=== PATIENT | female | born 1990 | race Caucasian/White ===

== ENCOUNTER 2023-10-05 09:10 | Emergency (ER) | payer OTHER, SELFPAY ==
[2023-10-05 09:33] VITALS: BP 157/98; PULSE 98; RESP 16; TEMP 36.7; O2SAT 100
--- NOTE | 2023-10-05 09:37 | ED.SKABFB ---
HPI - Skin/Abscess/Foreign Bdy General Chief complaint: Skin/Abscess/Foreign Body Stated complaint: leg abscess Time Seen by Provider: 10/05/23 09:37 Source: patient Mode of arrival: ambulatory Limitations: no limitations History of Present Illness HPI narrative: Janae is a 32-year-old female patient presenting to the clinic today with complaints of a possible abscess to the left inner thigh near her groin. She reports that she 1st noticed this on night when it became red swollen and tender. States that has been draining some green discharge. No drainage today. Area is head still operator and red. She denies any fever, chills, or body aches. Related Data Allergies Allergy/AdvReac Type Severity Reaction Status Date / Time bactrim Allergy unknown Uncoded 10/05/23 11:11 Review of Systems Review of Systems: Pertinent positives per HPI. Patient denies any fever, chills, rash, headache, visual changes, dizziness, cough, runny nose, sore throat, shortness of breath, chest pain, palpitations, nausea, vomiting, diarrhea, constipation, abdominal pain, or any urinary issues. PMFSH Comments At the time of my signature, I reviewed and agree with the nursing past medical, surgical, social, and family history. There is no relevant family history pertinent to the patient complaint. Exam Narrative: General: Well-developed, well nourished, in no apparent distress Head: Normocephalic, atraumatic. Cardio: Regular rate and rhythm, s1 and s2 normal, no murmur appreciated. Resp: Clear to auscultation bilaterally, no rhonchi, rales, wheezing or rubs. Integumentary: [place], warm, and dry, indurated, red, with mild erythema noted to the left inner thigh near her groin, area does not have very much fluctuance upon exam however is tender to palpation. Redness measures 4 cm by 5 cm Course Course Emergency Course: Portions of this record may have been created with voice recognition software. Vital Signs Vital signs: Vital Signs Temperature 36.7 C 10/05/23 09:33 Pulse Rate 98 10/05/23 09:33 Respiratory Rate 16 10/05/23 09:33 Blood Pressure 157/98 H 10/05/23 09:33 Pulse Oximetry 100 10/05/23 09:33 Oxygen Delivery Room Air 10/05/23 09:33 Temperature 36.7 C 10/05/23 09:33 Pulse Rate 76 10/05/23 11:17 Respiratory Rate 16 10/05/23 11:17 Blood Pressure 122/85 10/05/23 11:17 Pulse Oximetry 98 10/05/23 11:17 Oxygen Delivery Room Air 10/05/23 09:33 Vital signs reviewed MDM - Skin/Abscess/Foreign Bdy MDM Narrative Medical decision making narrative: At the time of visit patient is resting comfortably on the exam table. Patient appears to be nontoxic. Labs: CBC shows white blood cell count of 8.3, H and H of 13.7 and 40.6, platelet counts 337, chemistry level shows 137 sodium, potassium of 4.2, chloride 105, BUN of 10, creatinine 0.7, GFR greater than 60, liver function test within normal limits Plan: I suspect patient has an abscess to the left inner groin. Abscess is already draining. Will place patient on clindamycin. Supportive measures were discussed with the patient and they voiced understanding discharge instructions and agrees to treatment plan. Return precautions reviewed Differential Diagnosis Differential diagnosis: Likely abscess of skin or subcutaneous tissue, cellulitis, insect bites and other (Hidradenitis suppurative) Lab Data 10/05/23 09:43 10/05/23 09:43 Labs: Lab Results 10/05/23 Range/Units 09:43 WBC 8.3 (4.5-10.0) K/mm3 RBC 4.56 (4.2-5.4) M/mm3 Hgb 13.7 (12.0-15.0) g/dL Hct 40.6 (37.0-47.0) % MCV 89.0 (80-100) fl MCH 30.0 (26-34) pg MCHC 33.7 (32-36) g/dl RDW 12.8 (11.5-14.5) % Plt Count 337 (150-375) k/mm3 MPV 9.9 (7.4-10.4) fl Immature Gran % (Auto) 0.5 (0-0.5) % Neut % (Auto) 80.6 H (45.5-73.1) % Lymph % (Auto) 10.9 L (18.3-44.2) % [place] % (Auto) 6.1 (2.6-8.5) % Eos % (Auto)
[2023-10-05 10:17] LABS: Basophils Percent Auto 0.4 % (0.2-1.2); Eosinophils Absolute Auto 0.1 K/mm3 (0-0.3); Eosinophils Percent Auto 1.5 % (0-4.4); Hematocrit 40.6 % (37.0-47.0); Hemoglobin 13.7 g/dL (12.0-15.0); Immature Granulocyte Absolute 0.04 K/mm3 (0.00-0.031); Immature Granulocyte Percent A 0.5 % (0-0.5); Lymphocytes Percent Auto 10.9 % (18.3-44.2); Mean Corpuscular HGB Conc 33.7 g/dl (32-36); Mean Platelet Volume 9.9 fl (7.4-10.4); Monocytes Absolute Auto 0.5 K/mm3 (0.1-0.6); Monocytes Percent Auto 6.1 % (2.6-8.5); Neutrophils Absolute Auto 6.7 K/mm3 (1.3-6.7); Neutrophils Percent Auto 80.6 % (45.5-73.1); Platelet Count Result 337 k/mm3 (150-375); Red Blood Count 4.56 M/mm3 (4.2-5.4); Red Cell Distribution Width 12.8 % (11.5-14.5); White Blood Count 8.3 K/mm3 (4.5-10.0)
[2023-10-05 10:38] LABS: Alanine Aminotransferase 15 U/L (6-35); Albumin Level 4.4 g/dL (3.5-5.1); Alkaline Phosphatase 66 U/L (38-126); Anion Gap 5 mmol/L (4-12); Aspartate Amino Transferase 18 U/L (14-36); Bilirubin,Total 0.4 mg/dL (0.2-1.3); Blood Urea Nitrogen 10 mg/dL (7-17); Calcium 9.2 mg/dL (8.4-10.2); Carbon Dioxide 27 mmol/L (22-30); Chloride 105 mmol/L (98-107); Estimated Glomerular Filt Rate > 60; Glucose 104 mg/dL (65-110); Potassium 4.2 mmol/L (3.4-5.0); Sodium 137 mmol/L (137-145)
[2023-10-05 11:17] VITALS: BP 122/85; PULSE 76; RESP 16; O2SAT 98
== END 2023-10-05 11:18 | disposition home or self-care (01) ==
PROVIDERS: Emergency Provider Nurse Practitioner Family
DX: L02.416 Cutaneous abscess of left lower limb (principal)
CPT/HCPCS: 36415; 80053; 85025; 99283